=== PATIENT | male | born 1965 | race Two or more races ===

== ENCOUNTER 2022-08-10 21:09 | Emergency (ER) | payer BC, OTHER ==
[~2022-08-10] VITALS: Ht 175.3 cm; Wt 113.6 kg
[2022-08-10] MEDS ORDERED: IOHEXOL 350 MG/ML 100ML IJ ONE (23:03)
[2022-08-11] MEDS ORDERED: HYDROmorphone HCL 2 MG/ML VL/or syr IV ONE (00:45)
[2022-08-11] MEDS ORDERED: ONDANSETRON HCL 4 MG/2 ML VIAL IV ONE (00:45)
[2022-08-11] MEDS ORDERED: LIDOCAINE 1% HCL (LOCAL ANESTH.) INJ 20ML MDV ID ONE (02:15)
[2022-08-11 04:00] VITALS: BP 128/60
[2022-08-11] MEDS ORDERED: ONDA-144 PO (04:50)
[2022-08-11] MEDS ORDERED: CEPH-510 PO (04:50)
[2022-08-11] MEDS ORDERED: PERCOT PO (04:50)
== END 2022-08-11 05:14 | disposition home or self-care (01) ==
LOC: ER 21:09
DX: S01.81XA Laceration without foreign body of other part of head, initial encounter (principal); I10 Essential (primary) hypertension; E78.5 Hyperlipidemia, unspecified; X58.XXXA Exposure to other specified factors, initial encounter; Y93.89 Activity, other specified; Y92.89 Other specified places as the place of occurrence of the external cause; Y99.8 Other external cause status
CPT/HCPCS: 12015; 70450; 71260; 72125; 73080; 73110; 73130; 74177; 96374; 96375; 99285; J1170; J2001; J2405; Q9967